=== PATIENT | female | born 1955 | race Caucasian/White ===

== ENCOUNTER → 2017-11-26 | Day surgery (SDC) | payer MEDICAID ==
[~2017-11-26] MED LIST: Lactated Ringers 1,000 ML IV SCH; Propofol 200 MG/20 ML SDV IV ONE
--- NOTE | 2017-11-26 11:10 | OR ---
DATE OF OPERATION: 11/26/2017 PREOPERATIVE DIAGNOSIS: SCREENING COLONOSCOPY. POSTOPERATIVE DIAGNOSIS: SCREENING COLONOSCOPY. SURGEON: Vitor Dumont MD PROCEDURE: A FULL-LENGTH COLONOSCOPY WITH POLYP REMOVAL X1. SURGEON: Vitor Dumont M.D. 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 COMPLICATIONS: None. SPECIMEN: Hyperplastic polyp, rectosigmoid junction. FINDINGS: 1. Full-length colonoscopy. 2. Small hyperplastic polyp, rectosigmoid junction. RECOMMENDATIONS: Follow up colonoscopy every 10 years pending path report. INDICATIONS: The patient was in for a physical. She never had a prior colonoscopy. Dr. Spencer sent her for a screening procedure. DESCRIPTION OF PROCEDURE: The patient was prepped and draped and placed in the left lateral decubitus position. A lubricated Olympus colonoscope was inserted and easily advanced to the cecum. Direct visualization of the ileocecal valve and appendiceal orifice was accomplished. The bowel prep was excellent. Upon withdrawal of the scope, the right transverse and descending colon was completely benign and in the sigmoid colon I could fine no signs of polyps, mass, ulceration, or bleeding sites. No vascular abnormalities or signs of colitis. In the rectosigmoid junction, around 20 cm, the patient had a small hyperplastic polyp, removed in its entirety with cold forceps. The rest of the rectosigmoid junction and rectal vault appeared benign. Retroflexion of the scope in the rectum showed no perianal lesions. Air was suctioned and scope removed without complication. GURDEEP/TIP /[id number]
== END ==
LOC: CC.SDS 06:55
PROVIDERS: ATTEND Family Medicine
DX: Z12.11 Encounter for screening for malignant neoplasm of colon (principal); K63.5 Polyp of colon; F17.200 Nicotine dependence, unspecified, uncomplicated; E78.5 Hyperlipidemia, unspecified; M19.90 Unspecified osteoarthritis, unspecified site; E55.9 Vitamin D deficiency, unspecified; Z79.899 Other long term (current) drug therapy; Z88.8 Allergy status to other drugs, medicaments and biological substances
CPT/HCPCS: 45380; J7120; J2704

== ENCOUNTER → 2021-03-27 | Day surgery (SDC) | payer MEDICARE ==
[~2021-03-27] MED LIST changes: +AMLODIPINE 2.5 MG PO SCH; +Albuterol/Ipratropium 3.0-0.5 MG/3 ML Neb Soln NEB ONE; +Albuterol/Ipratropium 3.0-0.5 MG/3 ML Neb Soln ONE; +CETIRIZINE 10 MG PO SCH; +Dexamethasone 4 MG/ML SDV ONE; +FLUTICASONE PROPIONATE NASBOTH SCH; +HYDROmorphone 1 MG/ML Syringe ONE; +Ketamine 200 MG/20 ML MDV ONE; +Ketorolac 30 MG/ML SDV ONE; +Midazolam 1 MG/ML 2 ML SDV ONE; +Neostigmine Methylsulfate 10 MG/10 ML MDV ONE; +Non-Formulary Medication 1 Each (Cetirizine [Zyrtec] 10 MG Tablet) PO SCH; +Non-Formulary Medication 1 Each (Fluticasone Propionate [Flonase Allergy Relief] 9.9 ML Sp NASBOTH SCH; +Ondansetron 4 MG/2 ML SDV ONE; +Phenylephrine 1% 10 MG/ML SDV ONE; -Propofol 200 MG/20 ML SDV IV ONE; +Propofol 200 MG/20 ML SDV ONE; +Rocuronium 50 MG/5 ML Vial ONE; +[UNRECOGNIZED DRUG - OTHER] NASBOTH SCH; +ceFAZolin 1 GM Vial IVPUSH ONE; +fentaNYL 100 MCG/2 ML SDV ONE
[2021-03-27] MEDS: Acetaminophen/oxyCODONE 325-5 MG Tab PO PRN ×2 (15:03→20:03)
--- NOTE | 2021-03-28 07:18 | PCM.SN.2 ---
- Free Text/Narrative Note: Stable POD #1. Pain well controlled. PO liquids tolerated. Wounds clean and dry. Can discharge today. FU my clinic if needed. Percocet #10 given for pain at home. May return to normal diet and activity. No restrictions.
--- NOTE | 2021-03-28 13:30 | OR ---
DATE OF OPERATION: 03/27/2021 PREOPERATIVE DIAGNOSIS: CHRONIC CHOLECYSTITIS, CHOLELITHIASIS. POSTOPERATIVE DIAGNOSIS: CHRONIC CHOLECYSTITIS, CHOLELITHIASIS. SURGEON: Troy Corbin MD PROCEDURE: LAPAROSCOPIC CHOLECYSTECTOMY. ANESTHESIA: General. ESTIMATED BLOOD LOSS: Minimum. SPECIMEN: Gallbladder and stones. INDICATIONS: This 66-year-old female has epigastric and right upper quadrant postprandial pain. Ultrasound shows gallbladder full of stones. DESCRIPTION OF PROCEDURE: After adequate preparation, trocars were placed intra- abdominally and the abdomen was insufflated. This examination of the abdomen by scope did not show any evidence of adhesions, bleeding, or bowel injury. The gallbladder was identified and appeared to be normal with Jasiel egg blue thin wall. Liver also appeared to be normal. The gallbladder was elevated over the liver bed. There were some omental adhesions around the body of the gallbladder that were taken down by cautery and blunt dissection. The cystic triangle structures were identified. She does have an unusual shaped gallbladder and this was extremely long with a low entry of the gallbladder into the common bile duct. This bifurcation, however, was easily identified. The stones were milked back up out of the cystic duct, and the cystic duct and artery were triply clipped and divided. The gallbladder was then taken off the liver bed using cautery dissection. Hemostasis was controlled with the Bovie, and the right upper quadrant was irrigated with saline and suctioned clear. The gallbladder was then placed in a sterile retrieval bag and brought out through the epigastric trocar site. The abdomen was desufflated and the skin was closed with Vicryl. Opening the gallbladder on the back table showed the identification of the whole gallbladder being full of stones all the way from zbigniew gritty stones up to a few dozen kernel of corn size stones. No mucosal lesions were identified. BPB/MODL /[id number]
== END | disposition home or self-care (01) ==
LOC: CC.SDS 09:31
PROVIDERS: ATTEND Surgery
DX: K80.10 Calculus of gallbladder with chronic cholecystitis without obstruction (principal); I10 Essential (primary) hypertension; F17.210 Nicotine dependence, cigarettes, uncomplicated; E78.5 Hyperlipidemia, unspecified; M81.0 Age-related osteoporosis without current pathological fracture; Z88.8 Allergy status to other drugs, medicaments and biological substances; Z79.899 Other long term (current) drug therapy; Z98.890 Other specified postprocedural states; Z20.822 Contact with and (suspected) exposure to COVID-19
CPT/HCPCS: 00790; 47562; 88304; A9270-GY; J0690; J1100; J1885; J2250; J2370; J2405; J2704; J2710; J3010; J7030; J7120

== ENCOUNTER 2024-10-19 14:52 | Emergency (ER) | payer MEDICARE ==
[2024-10-19] MEDS ORDERED: Sodium Chloride 0.9% 10 ML Syringe FLUSH PRN (15:14)
[2024-10-19 16:06] LABS: BASOPHILS ABSOLUTE AUTO 0.05 10^3/uL (0.00-0.50); BASOPHILS PERCENT AUTO 0.2 % (0-1); EOSINOPHILS ABSOLUTE AUTO 0.07 10^3/uL (0.00-1.50); EOSINOPHILS PERCENT AUTO 0.3 % (0-6); HEMATOCRIT 49.6 % (37.0-47.0); HEMOGLOBIN 16.4 g/dL (12.0-16.0); IMMATURE GRAN PERCENT AUTO 0.5 % (0.0-4.9); LYMPHOCYTES ABSOLUTE AUTO 1.99 10^3/uL (0.60-5.00); LYMPHOCYTES PERCENT AUTO 9.6 % (24-44); MEAN CORPUSCULAR HEMOGLOBIN 30.3 pg (27.0-32.0); MEAN CORPUSCULAR HGB CONC 33.1 g/dL (32.0-36.0); MEAN CORPUSCULAR VOLUME 91.7 fL (83.0-97.0); MONOCYTES ABSOLUTE AUTO 1.63 10^3/uL (0.00-1.50); MONOCYTES PERCENT AUTO 7.9 % (0-10); NEUTROPHILS PERCENT AUTO 81.5 % (41-71); PLATELET COUNT,PLT 250 10^3/uL (150-400); RED BLOOD CELL COUNT 5.41 x10^6/uL (4.00-5.50)
[2024-10-19 16:19] LABS: WHITE BLOOD CELL COUNT,WBC 20.6 10^3/uL (4.0-11.0)
[2024-10-19 16:48] LABS: ALANINE AMINOTRANSFERASE,ALT 35 U/L (12-78); ALKALINE PHOSPHATASE 107 U/L (46-116); ASPARTATE AMNIOTRANSFERASE,AST 22 U/L (15-37); BILIRUBIN TOTAL 0.7 mg/dL (0.0-1.0); BLOOD UREA NITROGEN,BUN 20 mg/dL (7-18); CALCIUM 10.2 mg/dL (8.4-10.1); CARBON DIOXIDE,CO2 24 mmol/L (21-32); CHLORIDE,CL 105 mEq/L (98-106); CREATININE 1.7 mg/dL (0.6-1.0); GLUCOSE RANDOM 108 mg/dL (75-99); MAGNESIUM 1.9 mg/dL (1.8-2.4); POTASSIUM,K 4.4 mEq/L (3.5-5.0); PROTEIN TOTAL,TP 7.3 g/dL (6.4-8.2); SODIUM,NA 140 mEq/L (136-145)
[2024-10-19 16:48] LABS: APPEARANCE,URINE CLEAR (CLEAR); COLOR,URINE YELLOW (YELLOW); GLUCOSE,URINE NEGATIVE (NEGATIVE); KETONES,URINE TRACE mg/dL (NEGATIVE); LEUKOCYTE ESTERASE,URINE NEGATIVE (NEGATIVE); NITRITE,URINE NEGATIVE (NEGATIVE); OCCULT BLOOD,URINE NEGATIVE (NEGATIVE); PH,URINE 5.5 (4.5-8.0); PROTEIN,URINE 30 mg/dL (NEGATIVE); UROBILINOGEN,URINE 0.2 EU/dL (0.2-1.0)
[2024-10-19 16:51] LABS: C-REACTIVE PROTEIN < 0.50 mg/dL (<=0.50); ESTIMATED GFR 32 mL/min (>=60)
[2024-10-19 16:51] LABS: BILIRUBIN,URINE NEGATIVE (NEGATIVE)
[2024-10-19 16:58] LABS: BACTERIA,URINE FEW /HPF (NOT SEEN); HYALINE CASTS,URINE MODERATE /LPF (NOT SEEN); RBC,URINE NOT SEEN /HPF (0-5); SQUAMOUS EPITHELIAL CELLS,UR MANY /HPF (NOT SEEN); WBC,URINE NOT SEEN /HPF (0-5)
[2024-10-19] MEDS ORDERED: ceFAZolin 2 GM Vial IVPUSH ONE (17:55)
[2024-10-19] MEDS: Sodium Chloride 0.9% 1,000 ML IV ONE (18:58)
== END 2024-10-19 19:42 | disposition critical access hospital (66) ==
LOC: CC.ED 14:52
DX: H53.8 Other visual disturbances (principal); D72.829 Elevated white blood cell count, unspecified; R29.1 Meningismus; Z88.8 Allergy status to other drugs, medicaments and biological substances; Z79.899 Other long term (current) drug therapy
CPT/HCPCS: 36415; 70460; 71046; 80053; 81001; 83735; 84484; 85025; 85379; 86140; 87040; 93005; 96360; 99285-25; J7030